=== PATIENT | male | born 2000 | race Native Hawaiian/Other Pacific Islander ===

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

== ENCOUNTER 2019-01-02 13:01 | Emergency (ER) | payer OTHER ==
[~2019-01-02] VITALS: Ht 180.3 cm; Wt 79.8 kg
[2019-01-02 14:37] VITALS: BP 119/58; TEMP 98.3
== END 2019-01-02 14:41 | disposition home or self-care (01) ==
LOC: ED 13:01
DX: J06.9 Acute upper respiratory infection, unspecified (principal); H60.92 Unspecified otitis externa, left ear
CPT/HCPCS: 87502; 87651; 96372; 99283; J0696; J1885